=== PATIENT | male | born 1960 | race Caucasian/White ===

== ENCOUNTER 2022-07-13 13:49 | Emergency (ER) | payer MEDICAID ==
[~2022-07-13] VITALS: Ht 175.3 cm; Wt 90.0 kg
[2022-07-13 15:01] VITALS: BP 131/71
[2022-07-13] MEDS ORDERED: TETanus/Pertussis (Acell)/Diphther VAC/PF (Tdap-Adult) 0.5ml syringe IMVAC ONE (15:30)
[2022-07-13] MEDS ORDERED: LIDOcaine 1% w/EPI 1:100,000 30ml vial (MDV) IJ ONE (15:30)
--- NOTE | 2022-07-13 16:02 | NUR ---
wound cleaned with 1000ml nacl
--- NOTE | 2022-07-13 16:37 | NUR ---
dressing applied to suture repair site. im given
== END 2022-07-13 16:38 | disposition home or self-care (01) ==
LOC: ER 13:51
DX: S71.111A Laceration without foreign body, right thigh, initial encounter (principal); Z88.2 Allergy status to sulfonamides; Z88.5 Allergy status to narcotic agent; X58.XXXA Exposure to other specified factors, initial encounter; Y93.89 Activity, other specified; Y92.89 Other specified places as the place of occurrence of the external cause; Y99.8 Other external cause status
CPT/HCPCS: 12004; 90471; 90715; 99283; A6222; A6449

== ENCOUNTER 2022-07-26 08:51 | Emergency (ER) | payer MEDICAID ==
[~2022-07-26] VITALS: Ht 175.3 cm; Wt 102.0 kg
[2022-07-26 09:26] VITALS: BP 137/77
[2022-07-26] MEDS ORDERED: CEPH250T PO (10:22)
== END 2022-07-26 10:46 | disposition home or self-care (01) ==
LOC: ER 08:52
DX: S71.111D Laceration without foreign body, right thigh, subsequent encounter (principal); Z48.02 Encounter for removal of sutures; Z88.2 Allergy status to sulfonamides; Z88.5 Allergy status to narcotic agent; Z79.2 Long term (current) use of antibiotics; X58.XXXD Exposure to other specified factors, subsequent encounter
CPT/HCPCS: 99283; A6258; A6449

== ENCOUNTER 2024-04-08 15:00 | Emergency (ER) | payer MEDICARE, MEDICAID ==
[~2024-04-08] VITALS: Ht 175.3 cm; Wt 102.5 kg
[2024-04-08 17:28] VITALS: BP 126/74; PULSE 74; RESP 14; TEMP 98.6; O2SAT 99
[2024-04-08] MEDS: ketorolac trometh. 30mg/ml inj. IM ONE (17:34)
[2024-04-08] MEDS: dexamethasone sod phosphate 10mg/ml inj IM STA (17:34)
== END 2024-04-08 17:40 | disposition home or self-care (01) ==
LOC: ER 15:01
DX: N43.3 Hydrocele, unspecified (principal); Z88.2 Allergy status to sulfonamides; Z88.5 Allergy status to narcotic agent
CPT/HCPCS: 76870; 93976; 96372; 99285; J1100; J1885

== ENCOUNTER 2024-04-22 09:52 | Emergency (ER) | payer MEDICARE, MEDICAID ==
[~2024-04-22] VITALS: Ht 175.3 cm; Wt 103.2 kg
[2024-04-22] MEDS ORDERED: OXYC-658 PO (11:21)
[2024-04-22] MEDS: ketorolac tromethamine 15mg/ml inj. IM ONE (11:41)
[2024-04-22 11:43] VITALS: BP 126/76; PULSE 62; RESP 16; TEMP 98.1; O2SAT 99
== END 2024-04-22 11:44 | disposition home or self-care (01) ==
LOC: ER 09:54
DX: N43.3 Hydrocele, unspecified (principal); Z88.2 Allergy status to sulfonamides; Z88.5 Allergy status to narcotic agent
CPT/HCPCS: 96372; 99283; J1885